=== PATIENT | female | born 1945 | race Caucasian/White ===

== ENCOUNTER 2019-04-23 15:00 | Emergency (ER) | payer BC, OTHER ==
[~2019-04-23] VITALS: Ht 154.9 cm; Wt 68.9 kg
[2019-04-23 15:40] VITALS: BP 182/77
--- NOTE | 2019-04-23 15:44 | PHYS DOC ---
Past Medical History Past Medical History: Hypertension, Other Additional Past Medical Histor: sleep apnea, RLS Past Surgical History: Appendectomy, Cholecystectomy Alcohol Use: None Drug Use: None Adult General Chief Complaint Chief Complaint: HEAD INJURY/TRAUMA HPI HPI Patient is a 74 year old female brought to the ER via EMS with complaints of head pain, swelling to forehead, R knee pain, and an avulsion to lateral R 5th digit after a fall at a gas station. Pt states she was filling the air in her tires when she tripped on the hose and fell. She denies any LOC, vision changes, nausea, vomiting, neck pain, numbness, tingling, or weakness after the fall. Pt denies any chest pain, palpitations, shortness of breath, or headache prior to the fall. She currently rates her pain an 8/10 on the pain scale she denies any alleviating factors, her knee pain increases with movement, her head pain is constant. Pt denies the use of any blood thinners. All other ROS is neg unless otherwise noted in HPI. Review of Systems Review of Systems See Above Current Medications Current Medications Current Medications Medications (Trade) Dose Ordered Sig/[place] Start Time Stop Time Status Last Admin Dose Admin Diphtheria/ Tetanus/Acell Pertussis (Boostrix) 0.5 ml ONCE ONCE 04/23/19 15:45 04/23/19 15:46 DC 04/23/19 15:50 0.5 ML Neomycin/ Polymyxin/ Bacitracin (Triple Antibiotic Ointment) 1 pkt 1X ONCE 04/23/19 16:00 04/23/19 16:01 DC Allergies Allergies Allergies Coded Allergies Type Severity Reaction Last Updated Verified No Known Drug Allergies 04/23/19 No Physical Exam Physical Exam See Above Constitutional: Well developed, well nourished, no acute distress, non-toxic appearance. [] HENT: Normocephalic, atraumatic, bilateral external ears normal, nose normal. [] Eyes: PERRLA, EOMI, conjunctiva normal, no discharge. [] Neck: Normal range of motion, no tenderness, supple, no stridor. [] Cardiovascular:Heart rate regular rhythm, no murmur [] Lungs & Thorax: Bilateral breath sounds clear to auscultation [] Skin: Warm, dry, no erythema, no rash; 2 cm x1 cm avulsion to lateral right 5th digit, no active bleeding; large hematoma noted to mid forehead no active bleeding. [] Back: No tenderness Extremities: R knee anterior TTP with limited ROM due to pain intolerance, no cyanosis, 1+ edema Neurologic: Alert and oriented X 3,no focal deficits noted. [] Psychologic: Affect normal, judgement normal, mood normal. [] Current Patient Data Vital Signs Vital Signs Date Time Temp Pulse Resp B/P (MAP) Pulse Ox O2 Delivery O2 Flow Rate FiO2 04/23/19 15:40 67 16 182/77 (112) 95 Room Air 04/23/19 15:05 98.8 98.8 EKG EKG [] Radiology/Procedures Radiology/Procedures PROCEDURE: KNEE RIGHT 3V KNEE RIGHT 3V 04/23/2019 3:21 PM INDICATION: Fall with right knee pain COMPARISON: None available. TECHNIQUE: 3 views of the right knee are provided. FINDINGS: There is no acute fracture or dislocation. Bone mineralization is within normal limits. Mild to moderate lateral femorotibial joint space narrowing with subcortical sclerosis along the lateral tibial plateau. Regional soft tissues are within normal limits. There is no soft tissue gas or osseous erosion. No significant knee joint effusion. IMPRESSION: No acute fracture or dislocation. Moderate lateral femorotibial joint space narrowing with sclerosis along the lateral tibial plateau. Findings may be associated with osteoarthrosis versus rheumatoid disorder.[] PROCEDURE: CT HEAD AND CERVICAL SPINE WO RS Compliance Statement: One or more of the following individualized dose reduction techniques were utilized for this examination: 1. Automated exposure control 2. Adjustment of the mA and/or kV according to patient size 3. Use of iterative reconstruction technique CT head and cervical spine without contrast 04/23/2019 3:34 PM INDICATION: Fall, forehead contusion COMPARISON: None available TECHNIQUE: Multiple axial CT images of the head were obtained from skull base through the vertex without intravenous contrast. Multiple axial CT images of the cervical spine were obtained without intravenous contrast. Coronal and sagittal reformats are provided. FINDINGS: Head: Ventricles, sulci and basal cisterns are within normal limits. There is no hydrocephalus. Chase-white matter differentiation is normal. There is no acute intracranial hemorrhage. There is no mass, mass effect or midline shift. Posterior fossa is normal in appearance. Visualized portions of the orbits are normal. Paranasal sinuses are well aerated. Mastoid air cells are well aerated. Scalp hematoma identified on the right for head measuring 6 mm in maximal thickness. Calvaria is intact. Cervical spine: Alignment of the cervical spine is normal. Skull base is intact. Craniocervical junction is normal in appearance. Atlantoaxial articulation is normal. Vertebral body heights are maintained without evidence for acute fracture. Mild/moderate disc height loss at C5-C6 with osseous endplate remodeling. Superior plate Schmorl's node is identified at C6 without significant height loss. At C5-C6, there is a posterior disc osteophyte complex with mild facet arthropathy and mild to moderate uncovertebral joint disease. No significant neuroforaminal or spinal canal stenosis. There is no prevertebral soft tissue swelling. Thyroid gland is normal in appearance. Visualized portions of the lung apices are normal without evidence for suspicious pulmonary nodule or infiltrate. IMPRESSION: 1. No acute intracranial hemorrhage. Right for head scalp hematoma without calvarial defect. 2. No acute fracture or malalignment of the cervical spine. Mild cervical spondylosis. Electronically signed by: Lesley Ly MD (04/23/2019 4:27 PM) [facility] Course & Med Decision Making Course & Med Decision Making Pertinent Labs and Imaging studies reviewed. (See chart for details) dx: Fall from standing, closed head injury without loss of consciousness, forehead contusion, abrasion of right pinky finger, right knee pain. Patient is a 74-year-old female who presented to the emergency department with complaints of a head injury, and right knee pain after she tripped over an air hose at a gas station today. CT head and neck was negative for any acute findings, x-ray of the right knee was also negative for any acute findings. The patient's tetanus was updated as needed, and wound care was applied to the right hand abrasion. Patient was encouraged to take Tylenol or ibuprofen as needed for pain, apply ice to the sore areas, and follow the head injury precautions provided. She is instructed to follow-up with her primary care doctor in the next one-two days, return to the ER if any symptoms worsen. Patient and her daughter verbalized an understanding of home care, medications, follow-up, and return to ED instructions and was in agreement with the plan of care. [] Dragon Disclaimer Dragon Disclaimer This electronic medical record was generated, in whole or in part, using a voice recognition dictation system. Departure Departure Impression: Primary Impression: Forehead contusion Additional Impressions: Fall from standing Closed head injury without loss of consciousness Contusion of right knee, initial encounter Abrasion of right little finger, initial encounter Disposition: 01 HOME, SELF-CARE Condition: STABLE Referrals: CRISTEL JUAREZ MD (PCP) Patient Instructions: Abrasion, [id number], Contusion, [id number], Head Injury, Adult, [id number], Knee Pain, [id number]-[id number] Additional Instructions: You may take Tylenol or ibuprofen as needed for pain. Apply ice to swollen painful areas for 10-15 minutes every hour while awake today and tomorrow and then as needed. Follow-up with her primary care doctor in 1-2 days. Follow the head injury precautions provided, return to the ER if any symptoms worsen. Problem Qualifiers Primary Impression: Forehead contusion Encounter type: initial encounter Qualified Codes: S00.83XA - Contusion of other part of head, initial encounter Additional Impressions: Fall from standing Encounter type: initial encounter Qualified Codes: W19.XXXA - Unspecified fall, initial encounter Closed head injury without loss of consciousness Encounter type: initial encounter Qualified Codes: S09.90XA - Unspecified injury of head, initial encounter [employer] Apr 23, 2019 15:44
[2019-04-23] MEDS ORDERED: DIPHTH,PERTUSS(ACELL),TET TOX 0.5 ML DISP.SYRIN. VAX IM ONE (15:45)
[2019-04-23] MEDS ORDERED: NEOMY/BACITR/POLYMYXIN OINT PACKET. TP ONE (16:00)
--- NOTE | 2019-04-23 16:10 | RAD ---
KNEE RIGHT 3V 04/23/2019 3:21 PM INDICATION: Fall with right knee pain COMPARISON: None available. TECHNIQUE: 3 views of the right knee are provided. FINDINGS: There is no acute fracture or dislocation. Bone mineralization is within normal limits. Mild to moderate lateral femorotibial joint space narrowing with subcortical sclerosis along the lateral tibial plateau. Regional soft tissues are within normal limits. There is no soft tissue gas or osseous erosion. No significant knee joint effusion. IMPRESSION: No acute fracture or dislocation. Moderate lateral femorotibial joint space narrowing with sclerosis along the lateral tibial plateau. Findings may be associated with osteoarthrosis versus rheumatoid disorder. Electronically signed by: Lesley Ly MD (04/23/2019 4:07 PM) [facility]
--- NOTE | 2019-04-23 16:30 | RAD ---
PQRS Compliance Statement: One or more of the following individualized dose reduction techniques were utilized for this examination: 1. Automated exposure control 2. Adjustment of the mA and/or kV according to patient size 3. Use of iterative reconstruction technique CT head and cervical spine without contrast 04/23/2019 3:34 PM INDICATION: Fall, forehead contusion COMPARISON: None available TECHNIQUE: Multiple axial CT images of the head were obtained from skull base through the vertex without intravenous contrast. Multiple axial CT images of the cervical spine were obtained without intravenous contrast. Coronal and sagittal reformats are provided. FINDINGS: Head: Ventricles, sulci and basal cisterns are within normal limits. There is no hydrocephalus. Chase-white matter differentiation is normal. There is no acute intracranial hemorrhage. There is no mass, mass effect or midline shift. Posterior fossa is normal in appearance. Visualized portions of the orbits are normal. Paranasal sinuses are well aerated. Mastoid air cells are well aerated. Scalp hematoma identified on the right for head measuring 6 mm in maximal thickness. Calvaria is intact. Cervical spine: Alignment of the cervical spine is normal. Skull base is intact. Craniocervical junction is normal in appearance. Atlantoaxial articulation is normal. Vertebral body heights are maintained without evidence for acute fracture. Mild/moderate disc height loss at C5-C6 with osseous endplate remodeling. Superior plate Schmorl's node is identified at C6 without significant height loss. At C5-C6, there is a posterior disc osteophyte complex with mild facet arthropathy and mild to moderate uncovertebral joint disease. No significant neuroforaminal or spinal canal stenosis. There is no prevertebral soft tissue swelling. Thyroid gland is normal in appearance. Visualized portions of the lung apices are normal without evidence for suspicious pulmonary nodule or infiltrate. IMPRESSION: 1. No acute intracranial hemorrhage. Right for head scalp hematoma without calvarial defect. 2. No acute fracture or malalignment of the cervical spine. Mild cervical spondylosis. Electronically signed by: Lesley Ly MD (04/23/2019 4:27 PM) [facility]
== END 2019-04-23 17:10 | disposition home or self-care (01) ==
LOC: ER 15:00
DX: S00.83XA Contusion of other part of head, initial encounter (principal); S80.01XA Contusion of right knee, initial encounter; S60.416A Abrasion of right little finger, initial encounter; I10 Essential (primary) hypertension; W01.0XXA Fall on same level from slipping, tripping and stumbling without subsequent striking against object, initial encounter; Y93.89 Activity, other specified; Y92.524 Gas station as the place of occurrence of the external cause; Y99.8 Other external cause status
CPT/HCPCS: 70450; 72125; 73562; 90471; 90715; 99284